=== PATIENT | female | born 1955 | race Caucasian/White ===

== ENCOUNTER → 2019-03-06 | Day surgery (SDC) | payer MEDICARE ==
[~2019-03-06] MED LIST: AMLODIPINE BESY10 MG PO; CLOPIDOGREL75 MG PO; CRESTOR10 MG PO; EPHEDRINE SULFATE INJ 50 MG/10 ML SYR ONE; FENTANYL CITRATE/PF 100MCG/2 ML INJ ONE; FUROSEMIDE40 MG PO; GABAPENTIN300 MG PO; HYOSCYAMINE SULFATE 0.5 MG/ML INJ ONE; LISINOPRIL10 MG PO; MIDAZOLAM HCL 2 MG/2 ML VIAL ONE; PANTOPRAZOLE SO40 MG PO; PROPOFOL IV EMULSION 10 MG/ML 50 ML VIAL ONE; TIZANIDINE HCL4 MG PO
--- OUTSIDE RECORDS SUMMARY | 2019-03-06 08:00 | XMS REPORT | Clinical Summary ---
Author Author [facility] Address Unknown Phone Unavailable Care Team Providers Care Hay Farmer Name Role Phone Eliazar English MD PCP Allergies Comments Active Allergy Reactions Severity Noted Date Codeine 11/13/2017 Morphine 11/13/2017 Medications End Date Status Medication Sig Dispensed Refills Start Date Active gabapentin (NEURONTIN) Take 300 mg 0 300 mg capsule by mouth 3 (three) times a day. Active lisinopril Take 10 mg by 0 (PRINIVIL,ZESTRIL) 10 mg mouth daily. tablet Active omeprazole (PriLOSEC) 40 Take 40 mg by 0 MG capsule mouth daily. Active traMADol (ULTRAM) 50 mg Take 50 mg by 0 tablet mouth every 6 (six) hours as needed for moderate pain. Active simvastatin (ZOCOR) 40 MG Take 40 mg by 0 tablet mouth nightly. Active furosemide (LASIX) 40 mg Take 40 mg by 0 tablet mouth 2 (two) times a day. Active clopidogrel (PLAVIX) 75 Take 75 mg by 0 mg tablet mouth daily. Active amLODIPine (NORVASC) 10 Take 10 mg by 0 mg tablet mouth daily. Active Problems Not on file Social History Date Tobacco Use Types Packs/Day Years Used Current Every Day Smoker 1 Smokeless Tobacco: Never Used Alcohol Use Drinks/Week oz/Week Comments No Sex Assigned at Date Recorded Not on file Industry Job Start Date Occupation Not on file Not on file Not on file Travel End Travel History Travel Start No recent travel history available. Last Filed Vital Signs Not on file Plan of Treatment Health Maintenance Due Date Last Done Comments BREAST CANCER SCREENING 2003 COLON CANCER SCREENING 2003 SHINGLES VACCINES (#1) 2003 65+ PNEUMOCOCCAL VACCINE 2018 (1 of 2 - PCV13) PNEUMOCOCCAL 2018 POLYSACCHARIDE VACCINE AGE 65 AND OVER INFLUENZA VACCINE 05/17/2019 Results Not on fileafter 03/05/2018 Insurance Type Payer Benefit Subscriber ID Effective Phone Address Plan / Dates Group PPO MULTIPLAN MULTIPLAN xxxxxxxxxx 2017- KIN PPO Present Advance Directives Patient has advance care planning documents on file. For more information, ivan varghese contact: [facility] [address] [place] [address]
--- OUTSIDE RECORDS SUMMARY | 2019-03-06 08:01 | XMS REPORT ---
Author Author Admin, [place] Organization [facility] Address [address] [address] Phone Allergies, Adverse Reactions, Alerts Allergy Name Reaction Description Start Date Severity Status Provider MORPHINE jens Critical Active Tala Dhaliwal.O. Conditions or Problems Problem Name Problem Code Onset Date Status Entry Date Provider Comment Standard Description Annotate Hepatomegaly 789.1 Active Tala Dixon D.O. Hepatomegaly Abdominal pain, generalized 789.07 Active Tala Dhaliwal.O. Abdominal pain, generalized Migraine headache 346.90 Active Tala Dixon D.O. Migraine, unspecified, without mention of intractable migraine, without mention of status migrainosus Prediabetes 790.29 Active Tala Dixon D.O. Other abnormal glucose Flu vaccine V04.81 Active Tala Dixon D.O. Need for prophylactic vaccination and inoculation against influenza Screening for hepatitis C V73.89 Active Tala Dixon D.O. Screening examination for other specified viral diseases Screening for HIV V73.89 Active Tala Dixon D.O. Screening examination for other specified viral diseases Somatic dysfunction, lower extremity 739.6 Active Tala Dhaliwal.O. Nonallopathic lesions of lower extremities, not elsewhere classified Somatic dysfunction, pelvic 739.5 Active Tala Dixon D.O. Nonallopathic lesions of pelvic region, not elsewhere classified Somatic dysfunction, spine, lumbar 739.3 Active Tala Dhaliwal.O. Nonallopathic lesions of lumbar region, not elsewhere classified Somatic dysfunction, spine, sacral 739.4 Active Tala Dhaliwal.O. Nonallopathic lesions of sacral region, not elsewhere classified Cellulitis 682.9 Active Roseline Aguilar MD Cellulitis and abscess of unspecified sites Colon cancer screening V76.51 Active Criselda Vicente MD (res) Screening for malignant neoplasms of colon Mammographic screening for breast cancer V76.12 Active Criselda Vicente MD (res) Other screening mammogram Muscle spasm, back 724.8 Active Criselda Vicente MD (res) Other symptoms referable to back Need for prophylactic vaccination and inoculation against other specified disease V05.8 Active Criselda Vicente MD (res) Need for prophylactic vaccination and inoculation against other specified disease Well woman exam V72.3 Active Criselda Vicente MD (res) Special investigations and examinations - Gynecological examination BMI 34.0-34.9 Active Criselda Vicente MD (res) Body Mass Index 34.0-34.9, adult Eczema, atopic dermatitis 692.9 Active Criselda Vicente MD (res) Contact dermatitis and other eczema, unspecified cause Hx of knee replacement, right V43.65 Active Criselda Vicente MD (res) Knee joint replaced by other means Obesity Active Criselda Vicente MD (res) Obesity, unspecified Sciatic neuropathy, 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 Osteoarthrosis, unspecified whether generalized or localized, involving unspecified site Paroxysmal atrial fibrillation 427.31 Active Criselda Vicente MD (res) Atrial fibrillation Carotid artery stenosis, right 433.10 Active Tala Dixon D.O. Occlusion and stenosis of carotid artery, without mention of cerebral infarction s/p carotid endarterectomy 10/14/2015 GERD 530.81 Active Tala Dixon D.O. Esophageal reflux Hypercholesterolemia 272.0 Active Tala Dixon D.O. Pure hypercholesterolemia Hyperglycemia, borderline 790.29 Active Tala Dixon D.O. Other abnormal glucose Hb A1c - 6.2% on 08/08/15 Hypertension 401.9 Active Tala Dixon D.O. Unspecified essential hypertension Hypothyroid 244.9 Active Tala Dixon D.O. Unspecified hypothyroidism PVD 443.9 Active Tala Dixon D.O. 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 Rash - non-specific ICD-782.1 Inactive Criselda Vicente MD (res) Abscess ICD-682.9 Inactive Criselda Vicente MD (res) BMI 40.0-44.9 Inactive Criselda Vicente MD (res) Vaginal cyst ICD-623.8 Inactive Criselda Vicente MD (res) Cellulitis ICD-682.9 Inactive Criselda Vicente MD (res) Foot pain, right ICD-729.5 Inactive Criselda Vicente MD (res) Cardiac arrhythmia, intermittent 427.9 Inactive Tala Dixon D.O. Cardiac dysrhythmia, unspecified Dysphagia ICD-787.20 Inactive Criselda Vicente MD (res) Facial droop ICD-781.94 Inactive Criselda Vicente MD (res) MORBID OBESITY ICD-278.01 Inactive Criselda Vicente MD (res) Intestinal parasite 129 Resolved Tala Dixon D.O. Intestinal parasitism, unspecified Rash - non-specific 782.1 Resolved Criselda Vicente MD (res) Rash and other nonspecific skin eruption Abscess 682.9 Resolved Criselda Vicente MD (res) Cellulitis and abscess of unspecified sites Vaginal (inner labia) BMI 40.0-44.9 Resolved Criselda Vicente MD (res) Body Mass Index 40.0-44.9, adult Vaginal cyst 623.8 Resolved Criselda Vicente MD (res) Other specified noninflammatory disorders of vagina Cellulitis 682.9 Resolved Criselda Vicente MD (res) Cellulitis and abscess of unspecified sites Foot pain, right 729.5 Resolved Criselda Vicente MD (res) Pain in limb Dysphagia 787.20 Resolved Criselda Vicente MD (res) Dysphagia, unspecified Facial droop 781.94 Resolved Criselda Vicente MD (res) Facial weakness MORBID OBESITY 278.01 Resolved Criselda Vicente MD (res) Morbid obesity Medication List Medication Instructions Start Date Stop Date Generic Name NDC Status Provider Patient Instruction ZOFRAN ODT 4 MG ORAL TABLET DISINTEGRATING 1-2 tabs Every 8 hours as needed for nausea ONDANSETRON 38462290731 Active Tala Dixon D.Neva Active IVERMECTIN 3 MG ORAL TABLET 5 tablets By Mouth x 1 dose; may repeat in 2 weeks if symptoms persist IVERMECTIN 84408374446 Active Tala Dixon D.O. Active MOBIC 15 MG ORAL TABLET 1 by mouth daily MELOXICAM 51513050807 Active Tala Dixon D.O. Active TIZANIDINE HCL 4 MG ORAL TABLET 1 By Mouth three times a day as needed for muscle spasm TIZANIDINE HCL 75137294535 Active Tala Dhaliwal.OCedric Active GABAPENTIN 300 MG ORAL CAPSULE 1 by mouth three times a day GABAPENTIN 84440377305 Active Criselda Vicente MD (res) Active OMEPRAZOLE 40 MG ORAL CAPSULE DELAYED RELEASE 1 By Mouth Every Day OMEPRAZOLE 59245648044 Active Criselda Vicente MD (res) Active ADULT ASPIRIN EC LOW STRENGTH 81 MG ORAL TABLET DELAYED RELEASE Take 1 By Mouth Every Day ASPIRIN 80220863114 Active Criselda Vicente MD (res) Active AMLODIPINE BESYLATE 10 MG ORAL TABLET 1 tab by mouth daily AMLODIPINE BESYLATE 36034941639 Active Tala Dixon D.Neva Active BLOOD PRESSURE MONITOR 7 DEVICE Take blood pressure twice daily. Keep a log. Please bring log to each appointment BLOOD PRESSURE MONITORING 99417762028 Active Sheba Ma MD Active CRESTOR 20 MG ORAL TABLET 1 by mouth every night ROSUVASTATIN CALCIUM 71491448011 Active [employer] FOOD TASTER Active FUROSEMIDE 40 MG ORAL TABLET 1 by mouth every am and 1/2 tab Every pm FUROSEMIDE 89302469795 Active Taal Dixon D.O. Active LISINOPRIL 40 MG ORAL TABLET 1 by mouth every day LISINOPRIL 02609759145 Active Marcie RosumAdherence FOOD TASTER Active PLAVIX 75 MG ORAL TABLET 1 by mouth every day CLOPIDOGREL BISULFATE 19353843015 Active Tala Dixon D.OCedric Active KEFLEX 500 MG ORAL CAPSULE 1 by mouth 4 times a day KEFLEX 500 MG ORAL CAPSULE 152568 CEPHALEXIN Inactive ACYCLOVIR 800 MG ORAL TABLET 1 by mouth every 8 hours ACYCLOVIR 800 MG ORAL TABLET 415926 ACYCLOVIR Inactive MOBIC 15 MG ORAL TABLET 1 by mouth daily MOBIC 15 MG ORAL TABLET 588667 MELOXICAM Inactive FLUCONAZOLE 150 MG ORAL TABLET take one tab By Mouth FLUCONAZOLE 150 MG ORAL TABLET 491591 FLUCONAZOLE Inactive KEFLEX 500 MG ORAL CAPSULE 1 by mouth BID KEFLEX 500 MG ORAL CAPSULE 853910 CEPHALEXIN Inactive BACTRIM DS 800-160 MG ORAL TABLET Take Twice a Day x 10 d BACTRIM DS 800-160 MG ORAL TABLET 686761 SULFAMETHOXAZOLE-TRIMETHOPRIM Inactive TRAMADOL HCL 50 MG ORAL TABLET 1-2 tablets by mouth 4 times a day as needed for pain TRAMADOL HCL 50 MG ORAL TABLET 406123 TRAMADOL HCL Inactive FUROSEMIDE 20 MG ORAL TABLET 1 by mouth every am FUROSEMIDE 20 MG ORAL TABLET 933618 FUROSEMIDE Inactive LIMBREL 250 MG ORAL CAPSULE Take 1 tablet every 12 hours as needed for osteoarthritic pain LIMBREL 250 MG ORAL CAPSULE FLAVOCOXID Inactive ALBUTEROL SULFATE (2.5 MG/3ML) 0.083% INHALATION NEBULIZATION SOLUTION 1 vial in HHN every 4 hours as needed ALBUTEROL SULFATE (2.5 MG/3ML) 0.083% INHALATION NEBULIZATION SOLUTION 698147 ALBUTEROL SULFATE Inactive OMEPRAZOLE 20 MG ORAL CAPSULE DELAYED RELEASE 1 by mouth every day OMEPRAZOLE 20 MG ORAL CAPSULE DELAYED RELEASE 405590 OMEPRAZOLE Inactive PROAIR HFA 108 (90 BASE) MCG/ACT INHALATION AEROSOL SOLUTION 2 puffs every 4 - 6 hours as needed PROAIR HFA 108 (90 BASE) MCG/ACT INHALATION AEROSOL SOLUTION ALBUTEROL SULFATE Inactive ALBENZA 200 MG ORAL TABLET 2 tabs By Mouth daily x 3 days; in 2 weeks, take 2 tabs By Mouth x 1 ALBENDAZOLE 48455602969 No Longer Active Tala Dixon D.O. Active KEFLEX 500 MG ORAL CAPSULE 1 by mouth 4 times a day CEPHALEXIN 99843215413 No Longer Active Marcia Amezcua MD (res) Active BACLOFEN 10 MG ORAL TABLET one tablet by mouth three times a day as needed for muscle spasm BACLOFEN 04947827037 No Longer Active Criselda Vicente MD (res) Active ACYCLOVIR 800 MG ORAL TABLET 1 by mouth every 8 hours ACYCLOVIR 90511773533 No Longer Active Criselda Vicente MD (res) Active MOBIC 15 MG ORAL TABLET 1 by mouth daily MELOXICAM 23235543833 No Longer Active Criselda Vicente MD (res) Active FLUCONAZOLE 150 MG ORAL TABLET take one tab By Mouth FLUCONAZOLE 07726679740 No Longer Active Criselda Vicente MD (res) Active KEFLEX 500 MG ORAL CAPSULE 1 by mouth BID CEPHALEXIN 40975024210 No Longer Active Tyesha Jackson MD Active BACTRIM DS 800-160 MG ORAL TABLET Take Twice a Day x 10 d SULFAMETHOXAZOLE-TRIMETHOPRIM 76984087771 No Longer Active Criselda Vicente MD (res) Active TRAMADOL HCL 50 MG ORAL TABLET 1-2 tablets by mouth 4 times a day as needed for pain TRAMADOL HCL 25022962361 No Longer Active Criselda Vicente MD (res) Active RANITIDINE HCL 150 MG ORAL TABLET 1 by mouth twice a day RANITIDINE HCL 57396029768 No Longer Active Miranda Boyd MD Active FUROSEMIDE 20 MG ORAL TABLET 1 by mouth every am FUROSEMIDE 95909869796 No Longer Active Criselda Vicente MD (res) Active LIMBREL 250 MG ORAL CAPSULE Take 1 tablet every 12 hours as needed for osteoarthritic pain FLAVOCOXID 40205901226 No Longer Active Criselda Vicente MD (res) Active ALBUTEROL SULFATE (2.5 MG/3ML) 0.083% INHALATION NEBULIZATION SOLUTION 1 vial in HHN every 4 hours as needed ALBUTEROL SULFATE 26981695477 No Longer Active Criselda Vicente MD (res) Active OMEPRAZOLE 20 MG ORAL CAPSULE DELAYED RELEASE 1 by mouth every day OMEPRAZOLE 94249017192 No Longer Active Miranda Boyd MD Active PROAIR HFA 108 (90 BASE) MCG/ACT INHALATION AEROSOL SOLUTION 2 puffs every 4 - 6 hours as needed ALBUTEROL SULFATE 43958784965 No Longer Active Criselda Vicente MD (res) Active SIMVASTATIN 40 MG ORAL TABLET 1 by mouth every night SIMVASTATIN 21748765563 No Longer Active Tala Dixon D.O. Active Immunizations Vaccine Administration Date Value Standard Description influenza immunization (Flu Vax) has been administered given influenza virus vaccine, unspecified formulation varicella shingles vaccine given varicella virus vaccine Vital Signs Date Name Value Unit Range Description blood pressure, diastolic 65 mm[Hg] BP vogt blood pressure, systolic 115 mm[Hg] BP sys height E&M 68 [in_us] Bdy height pulse rate E&M 69 /min Heart rate respiratory rate E&M 18 /min Resp rate temperature E&M 97.8 [degF] Body temperature weight E&M 226 [lb_av] Weight Measured blood pressure, diastolic 73 mm[Hg] BP vogt blood pressure, systolic 138 mm[Hg] BP sys height E&M 68 [in_us] Bdy height pulse rate E&M 62 /min Heart rate respiratory rate E&M 98 /min Resp rate temperature E&M 98.3 [degF] Body temperature weight E&M 235 [lb_av] Weight Measured blood pressure, diastolic 76 mm[Hg] BP vogt blood pressure, systolic 159 mm[Hg] BP sys height E&M 68 [in_us] Bdy height pulse rate E&M 72 /min Heart rate respiratory rate E&M 18 /min Resp rate temperature E&M 98.2 [degF] Body temperature weight E&M 241.60 [lb_av] Weight Measured blood pressure, diastolic, second observation 71 mm[Hg] BP vogt blood pressure, diastolic 71 mm[Hg] BP vogt blood pressure, systolic, second observation 134 mm[Hg] BP sys blood pressure, systolic 134 mm[Hg] BP sys height E&M 68 [in_us] Bdy height pulse rate E&M 69 /min Heart rate temperature E&M 98.0 [degF] Body temperature weight E&M 252.80 [lb_av] Weight Measured blood pressure, diastolic 82 mm[Hg] BP vogt blood pressure, systolic 148 mm[Hg] BP sys height E&M 68 [in_us] Bdy height pulse rate E&M 65 /min Heart rate respiratory rate E&M 20 /min Resp rate temperature E&M 98.4 [degF] Body temperature weight E&M 257 [lb_av] Weight Measured blood pressure, diastolic, second observation 70 mm[Hg] BP vogt blood pressure, diastolic 70 mm[Hg] BP vogt blood pressure, systolic, second observation 114 mm[Hg] BP sys blood pressure, systolic 114 mm[Hg] BP sys height E&M 68 [in_us] Bdy height pulse rate E&M 69 /min Heart rate respiratory rate E&M 16 /min Resp rate temperature E&M 98.6 [degF] Body temperature weight E&M 269 [lb_av] Weight Measured blood pressure, diastolic 85 mm[Hg] BP vogt blood pressure, systolic 164 mm[Hg] BP sys height E&M 68 [in_us] Bdy height pulse rate E&M 85 /min Heart rate respiratory rate E&M 18 /min Resp rate temperature E&M 98.5 [degF] Body temperature weight E&M 276.40 [lb_av] Weight Measured blood pressure, diastolic, second observation 84 mm[Hg] BP vogt blood pressure, diastolic 82 mm[Hg] BP vogt blood pressure, systolic, second observation 168 mm[Hg] BP sys blood pressure, systolic 158 mm[Hg] BP sys height E&M 68 [in_us] Bdy height pulse rate E&M 101 /min Heart rate respiratory rate E&M 17 /min Resp rate temperature E&M 98.0 [degF] Body temperature weight E&M 227 [lb_av] Weight Measured Diagnostic Results Date Name Value Unit Range Description Lab Report: CBC With Differential/Platelet, Comp. Metabolic Panel (14), ... - Chemistry thyroid stimulating hormone, serum 1.110 u[iU]/mL 0.450-4.500 very low density lipoproteins 38 mg/dL 5-40 chloride, serum 98 mmol/L 96-106 urea nitrogen, blood 8 mg/dL 8-27 Lab Report: CBC With Differential/Platelet, Comp. Metabolic Panel (14), ... - Hematology mean corpuscular hemoglobin concentration, RBC 34.0 G/DL % 31.5-35.7 erythrocyte (RBC) count 4.52 X10E6/UL 10*6/mm3 3.77-5.28 Lab Report: CBC With Differential/Platelet, Comp. Metabolic Panel (14), ... - Serology hepatitis C antibody, serum <0.1 0.0-0.9 Lab Report: CBC With Differential/Platelet, Comp. Metabolic Panel (14), ... - Chemistry Absolute Neutrophils 7.2 X10E3/UL 10*3/uL 1.4-7.0 LDL cholesterol, serum 50 mg/dL 0-99 urea nitrogen/creatinine ratio, serum 11 12-28 Lab Report: CBC With Differential/Platelet, Comp. Metabolic Panel (14), ... - Hematology mean corpuscular volume, RBC 92 fL 79-97 Lab Report: CBC With Differential/Platelet, Comp. Metabolic Panel (14), ... - Chemistry HDL cholesterol, serum 43 mg/dL >39 Lab Report: CBC With Differential/Platelet, Comp. Metabolic Panel (14), ... - Hematology monocytes as percent of blood leukocytes 6 % Not Estab. Lab Report: CBC With Differential/Platelet, Comp. Metabolic Panel (14), ... - Chemistry albumin/globulin ratio, serum 1.9 1.2-2.2 creatinine, serum 0.75 mg/dL 0.57-1.00 cholesterol, serum 131 mg/dL 285-277 5112/10/04 creatinine, random, urine 81.9 mg/dL Not Estab. bilirubin, serum, total 0.4 mg/dL 0.0-1.2 Lab Report: CBC With Differential/Platelet, Comp. Metabolic Panel (14), ... - Hematology Eosinophil Absolute Count 0.2 X10E3/UL 10*3/uL 0.0-0.4 Lab Report: CBC With Differential/Platelet, Comp. Metabolic Panel (14), ... - Chemistry aspartate aminotransferase (SGOT), serum 13 U/L 0-40 Lab Report: CBC With Differential/Platelet, Comp. Metabolic Panel (14), ... - Hematology red blood cell distribution width 13.3 % 12.3-15.4 leukocyte count, blood 9.7 X10E3/UL 10*3/mm3 3.4-10.8 Lab Report: CBC With Differential/Platelet, Comp. Metabolic Panel (14), ... - Chemistry potassium, serum 4.1 mmol/L 3.5-5.2 albumin, serum 4.4 g/dL 3.6-4.8 immature granulocytes, percentage of total cells, blood 0 % Not Estab. Lab Report: CBC With Differential/Platelet, Comp. Metabolic Panel (14), ... - Hematology lymphocyte count, blood, automated 1.7 X10E3/UL 10*3/mm3 0.7-3.1 hematocrit, blood 41.5 % 34.0-46.6 Lab Report: CBC With Differential/Platelet, Comp. Metabolic Panel (14), ... - Chemistry sodium, serum 141 mmol/L 134-144 Lab Report: CBC With Differential/Platelet, Comp. Metabolic Panel (14), ... - Hematology neutrophils as percent of blood leukocytes 75 % Not Estab. basophils as percent of blood leukocytes 0 % Not Estab. Lab Report: CBC With Differential/Platelet, Comp. Metabolic Panel (14), ... - Chemistry carbon dioxide, venous blood 26 mmol/L 20-29 triglyceride, serum, fasting 189 mg/dL 0-149 calcium, serum 9.2 mg/dL 8.7-10.3 microalbumin/creatinine ratio, urine <6.3 mg/g creat ug/mg 0.0-30.0 alanine aminotransferase (SGPT), serum 14 U/L 0-32 Lab Report: CBC With Differential/Platelet, Comp. Metabolic Panel (14), ... - Hematology mean corpuscular hemoglobin, RBC 31.2 pg 26.6-33.0 Lab Report: CBC With Differential/Platelet, Comp. Metabolic Panel (14), ... - Chemistry protein, total, serum 6.7 g/dL 6.0-8.5 alkaline phosphatase, serum 104 U/L 39-117 Lab Report: CBC With Differential/Platelet, Comp. Metabolic Panel (14), ... - Hematology hemoglobin, blood 14.1 g/dL 11.1-15.9 lymphocytes as percent of blood leukocytes 17 % Not Estab. Lab Report: CBC With Differential/Platelet, Comp. Metabolic Panel (14), ... - Chemistry hemoglobin A1C, blood, as % of total hemoglobin 5.8 % 4.8-5.6 Lab Report: CBC With Differential/Platelet, Comp. Metabolic Panel (14), ... - Genetics/fertility eGFR if 97 mL/min/1.73m2 >59 Lab Report: CBC With Differential/Platelet, Comp. Metabolic Panel (14), ... - Hematology basophil count, absolute 0.0 x10E3/uL 0.0-0.2 Lab Report: TSH+Free T4 - Chemistry thyroxine, serum, free 1.22 ng/dL 0.82-1.77 Lab Report: CBC With Differential/Platelet, Comp. Metabolic Panel (14), ... - Chemistry globulin, serum 2.3 1.5-4.5 Estimated Glomerular Filtration Rate (calc) 85 mL/min/1.73m2 >59 Lab Report: CBC With Differential/Platelet, Comp. Metabolic Panel (14), ... - Urinalysis microalbumin/total urine volume <3.0 ug/mL mg/L Not Estab. Lab Report: CBC With Differential/Platelet, Comp. Metabolic Panel (14), ... - Hematology eosinophils as percent of blood leukocytes 2 % Not Estab. Lab Report: CBC With Differential/Platelet, Comp. Metabolic Panel (14), ... - Chemistry blood glucose, random 106 mg/dL 65-99 Lab Report: CBC With Differential/Platelet, Comp. Metabolic Panel (14), ... - Hematology monocyte count, blood, automated 0.6 X10E3/UL 10*3/uL 0.1-0.9 platelet count 347 X10E3/UL 10*3/mm3 150-379 Encounters Date Encounter Provider Code Facility 12:07:59 CULINARY ARTIST Est Patient Exp Problem - 93219 Tala Blackman Dimitriie D.O. CPT-62901 [facility] 13:47:32 CULINARY ARTIST Est Patient Detailed - 68747 Tala Blackman Johndaie D.O. CPT-71294 [facility] 10:58:35 CULINARY ARTIST Est Patient Exp Problem - 17697 Tala Blackman Johndaie D.O. CPT-93801 [facility] 10:49:55 CDT Est Patient Exp Problem - 55163 Tala Blackman Destiny D.O. CPT-27231 [facility] 09:25:56 CDT Est Patient Exp Problem - 88817 Roseline Aguilar MD CPT-77058 [facility] 14:17:36 CDT Est Patient Exp Problem - 13854 Criselda Vicente MD (res) CPT-50204 [facility] 16:06:53 CDT Est Patient Exp Problem - 10572 Criselda Vicente MD (res) CPT-54215 [facility] 21:57:07 CDT Est Patient Detailed - 78781 Criselda Vicente MD (res) [facility]-72662 [facility] 15:48:07 CDT Est Patient Exp Problem - 87745 Criselda Vicente MD (res) CPT-39139 [facility] 16:00:53 CULINARY ARTIST Est Patient Exp Problem - 64110 Roseline Aguilar MD CPT-73579 [facility] 11:27:28 CULINARY ARTIST Est Patient Exp Problem - 96119 Ekta Littlejohn DO CPT-48418 [facility] 16:05:25 CULINARY ARTIST Est Patient Exp Problem - 74806 Miranda Boyd MD CPT-42001 [facility] 18:24:08 CDT Est Patient Exp Problem - 65740 Tala Mosleyie D.O. CPT-09741 [facility] 10:46:37 CULINARY ARTIST Est Patient Exp Problem - 26168 Tala Dixon D.O. CPT-47640 [facility] 15:15:17 CULINARY ARTIST New Patient Comprehensive - 46715 Tala Dixon D.O. CPT-38612 [facility] Procedures Code Procedure Name Date Entry Date Standard Description CPT-99278 INFLUENZA VACCINE QUADRIVALENT 3 YRS PLUS IM 10:51:15 CDT CPT-37958 OSTEOPATHIC MANIPULATIVE [place] 1-2 BODY REGIONS 11:20:25 CDT CPT-27722 Admin of Vaccine - Injection - 1 14:17:40 CDT CPT-11554 Zoster - Shingles 14:17:40 CDT CPT-69728 Est Patient Well Exam (40 - 64 Yrs) - [id number] 14:17:35 CDT
[2019-03-06 10:45] VITALS: BP 134/52
== END | disposition home or self-care (01) ==
LOC: OR 07:57
PROVIDERS: ATTEND Internal Medicine Gastroenterology
DX: K29.50 Unspecified chronic gastritis without bleeding (principal); D12.4 Benign neoplasm of descending colon; K21.0 Gastro-esophageal reflux disease with esophagitis; K44.9 Diaphragmatic hernia without obstruction or gangrene; K64.8 Other hemorrhoids; R19.7 Diarrhea, unspecified; R63.4 Abnormal weight loss; J45.909 Unspecified asthma, uncomplicated; I10 Essential (primary) hypertension; E78.5 Hyperlipidemia, unspecified; F32.9 Major depressive disorder, single episode, unspecified; Z79.02 Long term (current) use of antithrombotics/antiplatelets
CPT/HCPCS: 43239; 45384; 45385; J1980; J2250; J2704; 45378

== ENCOUNTER 2021-12-25 07:06 | Emergency (ER) | payer SELFPAY ==
[~2021-12-25] VITALS: Ht 167.6 cm; Wt 106.6 kg
[~2021-12-25 07:06] MED LIST changes: -EPHEDRINE SULFATE INJ 50 MG/10 ML SYR ONE; -FENTANYL CITRATE/PF 100MCG/2 ML INJ ONE; -HYOSCYAMINE SULFATE 0.5 MG/ML INJ ONE; -MIDAZOLAM HCL 2 MG/2 ML VIAL ONE; -PROPOFOL IV EMULSION 10 MG/ML 50 ML VIAL ONE
== END 2021-12-25 07:31 | disposition left against medical advice (07) ==
LOC: ER 07:23
DX: D64.9 Anemia, unspecified (principal)